=== PATIENT | female | born 1950 | race Hispanic/Latino ===

== ENCOUNTER 2017-06-03 12:24 | Inpatient (IN) | payer MEDICARE, OTHER ==
[2017-06-03] MEDS ORDERED: Ipratropium 0.02% Inhal Soln (0.5 mg/2.5 ml) UD IH STA (12:36)
[2017-06-03] MEDS ORDERED: Digoxin 500 mcg/2ml (0.5 mg/2ml) Inj IVP STA (13:05)
--- NOTE | 2017-06-03 13:15 | ED PDOC ---
Arrival/HPI - General Chief Complaint: Shortness Of Breath Time Seen by Provider: 06/03/17 12:26 Historian: Patient - History of Present Illness Narrative History of Present Illness (Text): 06/03/17 13:16 66 year old female, whose past medical history includes CHF on 40mg Lasix and A- fib, presents to the Emergency department complaining of worsening shortness of breath and dyspnea on exertion for past 10 days. Patient informs she has been non-compliant with her medications for past 1 month. Patient additionally informs having sinusitis with mild cough last week but currently denies any symptoms. Patient denies any fever, orthopnea, chest pain, palpitation, cough, nausea, vomiting, abdominal pain, diarrhea, dysuria or any other complaints. Time/Duration: > week Symptom Onset: Gradual Symptom Course: Worsening Activities at Onset: Light Context: Home Past Medical History - Provider Review Nursing Documentation Reviewed: Yes - Past History Past History: No Previous - Tetanus Immunization Tetanus Immunization: Unknown - Reproductive Menopause: Yes - Cardiac Hx Cardiac Disorders: Yes Hx Congestive Heart Failure: Yes - Pulmonary Hx Bronchitis: Yes - Musculoskeletal/Rheumatological Hx Falls: No - Psychiatric Hx Depression: Yes Hx Emotional Abuse: No Hx Physical Abuse: No Hx Substance Use: No - Past Surgical History Past Surgical History: No Previous - Suicidal Assessment Feels Threatened In Home Enviroment: No Family/Social History - Physician Review Nursing Documentation Reviewed: Yes Family/Social History: No Known Family HX Smoking Status: Former Smoker Hx Alcohol Use: Yes Frequency of alcohol use: Daily Hx Substance Use: No Hx Substance Use Treatment: No Allergies/Home Meds Allergies/Adverse Reactions: Allergies No Known Allergies Allergy (Verified 06/03/17 12:42) Home Medications: Home Meds Medication Instructions Recorded Confirmed Carvedilol [Coreg] 6.25 mg PO BID 06/03/17 06/03/17 Digoxin [Lanoxin] 250 mcg PO DAILY 06/03/17 06/03/17 Furosemide [Lasix] 40 mg PO DAILY 06/03/17 06/03/17 Ramipril [Altace] 2.5 mg PO DAILY 06/03/17 06/03/17 Spironolactone [Aldactone] 25 mg PO BID 06/03/17 06/03/17 Warfarin [Coumadin] 6 mg PO DAILY 06/03/17 06/03/17 Review of Systems - Physician Review All systems were reviewed & negative as marked: Yes - Review of Systems Constitutional: Normal. absent: Fevers Eyes: Normal ENT: Normal Respiratory: SOB. absent: Cough Cardiovascular: [place]. absent: Chest Pain, Palpitations, Orthopnea Gastrointestinal: Normal. absent: Abdominal Pain, Diarrhea, Nausea, Vomiting Genitourinary Female: Normal. absent: Dysuria Musculoskeletal: Normal Skin: Normal Neurological: Normal Endocrine: Normal Hemo/Lymphatic: Normal Psychiatric: Normal Physical Exam Vital Signs Reviewed: Yes Vital Signs Pulse Resp BP Pulse Ox 06/03/17 13:51 127/86 06/03/17 12:24 130 H 24 163/90 H 100 Temperature: Afebrile Blood Pressure: Hypertensive Pulse: Tachycardic Respiratory Rate: Normal Appearance: Positive for: Well-Appearing, Non-Toxic, Comfortable Pain Distress: None Mental Status: Positive for: Alert and Oriented X 3 - Systems Exam Head: Present: Atraumatic, Normocephalic Pupils: Present: PERRL Extroacular Muscles: Present: EOMI Conjunctiva: Present: Normal Mouth: Present: Moist Mucous Membranes Neck: Present: Normal Range of Motion Respiratory/Chest: Present: Good Air Exchange, Decreased Breath Sounds ( bibasilarly ). No: Respiratory Distress, Accessory Muscle Use Cardiovascular: Present: Murmurs (systolic ejection best heard at right upper sternal border ), Normal S1, S2, Tachycardic Abdomen: Present: Normal Bowel Sounds. No: Tenderness, Distention, Peritoneal Signs Back: Present: Normal Inspection Upper Extremity: Present: Normal Inspection. No: Cyanosis, Edema Lower Extremity: Present: Normal Inspection. No: Edema Neurological: Present: GCS=15, CN II-XII Intact, Speech Normal Skin: Present: Warm, Dry, Normal Color. No: Rashes Psychiatric: Present: Alert, Oriented x 3, Normal Insight, Normal Concentration Medical Decision Making ED Course and Treatment: 06/03/17 13:25 Impression: 66 year female presents to the Emergency department for shortness of breath s/p non-complaint with medications. Plan: -- VBG -- Labs -- Chest X-ray -- Atrovent -- Lanoxin -- Lasix -- Blood culture -- Urine culture -- Urinalysis -- Reassess and disposition Progress Notes: - Lab Interpretations Lab Results: 06/03/17 13:18 06/03/17 13:18 Lab Results 06/03/17 15:00: Urine Color Yellow, Urine Appearance Clear, Urine pH 6.0, Ur Specific [place] 1.010, Urine Protein Negative, Urine Glucose (UA) Negative, Urine Ketones Negative, Urine Blood Negative, Urine Nitrate Negative, Urine Bilirubin Negative, Urine Urobilinogen 0.2, Ur Leukocyte Esterase Negative 06/03/17 13:18: Sodium 126 L, Chloride 89 L, Potassium 4.4, Carbon Dioxide 24, Anion Gap 17, BUN 20, Creatinine 0.7, Est GFR ( Amer) > 60, Est GFR (Non- Af Amer) > 60, Random Glucose 168 H, Calcium 9.5, Total Bilirubin 1.0, AST 34, ALT 47, Alkaline Phosphatase 118, Lactate Dehydrogenase 737 H, Total Creatine Kinase 80, Troponin I 0.02, NT-Pro-B Natriuret Pep 4030 H, Total Protein 7.4, Albumin 4.0, Globulin 3.4, Albumin/Globulin Ratio 1.2 06/03/17 13:18: pO2 58 H, VBG pH 7.40, VBG pCO2 39.0 L, VBG HCO3 24.2, VBG Total CO2 25.4, VBG O2 Sat (Calc) 92.5 H, VBG Base Excess -0.5 L, VBG Potassium 4.4, Sodium 124.0 L, Chloride 90.0 L, Glucose 173 H, Lactate 2.2 H, FiO2 21.0, Venous Blood Potassium 4.4 06/03/17 13:18: PT 16.2 H, INR 1.41 H, APTT 26.6 06/03/17 13:18: WBC 12.4 H, RBC 4.29, Hgb 15.2, Hct 43.0, MCV 100.2, MCH 35.4 H , MCHC 35.3, RDW 13.0, Plt Count 339, MPV 10.7, Gran % 78.0 H, Lymph % (Auto) 13.3 L, [place] % (Auto) 8.4 H, Eos % (Auto) 0.2 L, Baso % (Auto) 0.1, Gran # 9.64 H, Lymph # 1.6, [place] # 1.0 H, Eos # 0.0, Baso # 0.01 - RAD Interpretation Radiology Orders: 06/03/17 12:36 CHEST PORTABLE [RAD] Stat - Medication Orders Current Medication Orders: Discontinued Medications Digoxin (Lanoxin) 0.25 mg IVP STAT STA Stop: 06/03/17 13:06 Last Admin: 06/03/17 13:51 Dose: 0.25 mg MAR Apical Pulse Rate Document 06/03/17 13:51 RG (Rec: 06/03/17 13:51 [email or web address]) Apical Pulse Rate Apical Pulse Rate (60-90 beats/min) 130 IVP Administration Document 06/03/17 13:51 RG (Rec: 06/03/17 13:51 [email or web address]) Charges for Administration # of IVP Administrations 1 Furosemide (Lasix) 40 mg IVP STAT STA Stop: 06/03/17 13:06 Last Admin: 06/03/17 13:51 Dose: 40 mg MAR Blood Pressure Document 06/03/17 13:51 RG (Rec: 06/03/17 13:52 [email or web address]) Blood Pressure Blood Pressure (100/60-150/90 mm Hg) 127/86 IVP Administration Document 06/03/17 13:51 RG (Rec: 06/03/17 13:52 [email or web address]) Charges for Administration # of IVP Administrations 1 Ipratropium [place] (Atrovent) 0.5 mg IH STAT STA Stop: 06/03/17 12:37 Last Admin: 06/03/17 13:29 Dose: 0.5 mg - Scribe Statement The provider has reviewed the documentation as recorded by the Jessa Vitale. All medical record entries made by the Jessa were at my direction and personally dictated by me. I have reviewed the chart and agree that the record accurately reflects my personal performance of the history, physical exam, medical decision making, and the department course for this patient. I have also personally directed, reviewed, and agree with the discharge instructions and disposition. Disposition/Present on Arrival - Present on Arrival Any Indicators Present on Arrival: No History of DVT/PE: No History of Uncontrolled Diabetes: No Urinary Catheter: No History of Decub. Ulcer: No History Surgical Site Infection Following: None - Disposition Have Diagnosis and Disposition been Completed?: Yes Diagnosis: Acute exacerbation of CHF (congestive heart failure) Disposition: HOSPITALIZED Disposition Time: 15:29 Patient Plan: Admission, Telemetry Condition: GUARDED Discharge Instructions (ExitCare): Heart Failure (ED) Forms: [employer] (Hungarian)
[2017-06-03 13:33] LABS: BASO # 0.01 K/mm3 (0.0-2.0); BASO % 0.1 % (0.0-3.0); EOS % 0.2 % (1.5-5.0); GRAN # 9.64 (1.4-6.5); HEMOGLOBIN 15.2 g/dL (12.0-16.0); LYMPH # 1.6 (1.2-3.4); LYMPH % 13.3 % (22.0-35.0); MEAN CELL VOLUME 100.2 fl (80.0-105.0); MEAN CORPUSCULAR HEMOGLOBIN 35.4 pg (25.0-35.0); MEAN CORPUSCULAR HGB CONC 35.3 g/dl (31.0-37.0); MEAN PLATELET VOLUME 10.7 fl (7.0-11.0); MONO % 8.4 % (1.0-6.0); RBC 4.29 10^6/uL (3.5-6.1); WHITE BLOOD COUNT 12.4 10^3/ul (4.5-11.0)
[2017-06-03 13:37] LABS: VENOUS BLOOD GAS BASE EXCESS -0.5 mmol/L (0.0-2.0); VENOUS BLOOD GAS PO2 58 mm/Hg (30-55)
[2017-06-03 13:51] LABS: INR 1.41 (0.93-1.08); PARTIAL THROMBOPLASTIN TIME 26.6 Seconds (25.1-36.5); PROTHROMBIN TIME 16.2 SECONDS (9.4-12.5)
[2017-06-03 13:54] LABS: B-TYPE NATRIURETIC PEPTIDE 4030 pg/mL (0-450); TROPONIN I 0.02 ng/mL
[2017-06-03 14:21] LABS: ALB/GLOB RATIO 1.2 (1.1-1.8); ALT/SGPT 47 U/L (7-56); AST/SGOT 34 U/L (14-36); BLOOD UREA NITROGEN 20 mg/dL (7-21); CALCIUM 9.5 mg/dL (8.4-10.5); GFR AFRICAN-AMERICAN > 60; GFR NON-AFRICAN AMERICAN > 60
--- NOTE | 2017-06-03 14:54 | RAD ---
HISTORY: sob COMPARISON: No prior. FINDINGS: LUNGS: No active pulmonary disease. PLEURA: No significant pleural effusion identified, no pneumothorax apparent. CARDIOVASCULAR: Cardiomegaly. OSSEOUS STRUCTURES: No significant abnormalities. VISUALIZED UPPER ABDOMEN: Normal. OTHER FINDINGS: None. IMPRESSION: No active disease.
[2017-06-03 15:16] LABS: URINE APPEARANCE CLEAR (CLEAR); URINE BILIRUBIN NEGATIVE (NEGATIVE); URINE BLOOD NEGATIVE (NEGATIVE); URINE COLOR YELLOW (YELLOW); URINE GLUCOSE (UA) NEGATIVE (NEGATIVE); URINE LEUKOCYTE ESTERASE NEGATIVE Leu/uL (NEGATIVE); URINE NITRATE NEGATIVE (NEGATIVE); URINE PROTEIN NEGATIVE mg/dL (<30 mg/dL); URINE UROBILINOGEN 0.2 E.U./dL (<1 E.U./dL)
[2017-06-03 18:39] LABS: VENOUS BLOOD GAS PO2 31 mm/Hg (30-55); VENOUS BLOOD PH 7.37 (7.32-7.43)
[2017-06-03 19:07] VITALS: BMI 29.1
[2017-06-04 06:26] LABS: VENOUS BLOOD GAS BASE EXCESS 9.7 mmol/L (0.0-2.0); VENOUS BLOOD GAS PO2 102 mm/Hg (30-55); VENOUS BLOOD PH 7.38 (7.32-7.43)
[2017-06-04 06:55] LABS: TROPONIN I 0.04 ng/mL
[2017-06-04 07:38] LABS: BLOOD UREA NITROGEN 19 mg/dL (7-21); GFR AFRICAN-AMERICAN > 60; GFR NON-AFRICAN AMERICAN > 60; MAGNESIUM 1.6 mg/dL (1.7-2.2)
--- NOTE | 2017-06-04 09:10 | CARD ---
APPROVED REPORT EKG Measurement Heart [id number] <Conclusion> Atrial fibrillation with rapid ventricular response with premature ventricular or aberrantly conducted complexes Low voltage QRS Possible Anterolateral infarct, age undetermined Abnormal ECG
[2017-06-04] MEDS ORDERED: Potassium Chloride 20 mEq ER Tab PO ONE (09:37)
[2017-06-04] MEDS: Potassium Chloride 20 mEq ER Tab PO SCH ×2 (10:51→18:17)
[2017-06-04] MEDS: Enoxaparin 80 mg Syringe SC SCH ×2 (10:55→21:31)
[2017-06-04] MEDS: Magnesium Oxide 400 mg Tab UD PO SCH ×4 (10:55→18:18)
[2017-06-04] MEDS: Digoxin 250 mcg (0.25 mg) Tab PO SCH (14:25)
--- NOTE | 2017-06-04 18:28 | CON ---
DATE: 06/04/2017 INDICATION: Shortness of breath, dyspnea on exertion, medical noncompliance. HISTORY OF PRESENT ILLNESS: This is a 66-year-old woman admitted with shortness of breath, worsening over a week or so. She has been noncompliant with medications for about a month and noncompliant with medical followup. She has known atrial fibrillation, known severe LV dysfunction based on an evaluation in 2012. She has been on Coumadin, but only followed up sporadically and more recently stopped taking all of her medication about one month ago. There is no chest pain, orthopnea, PND, syncope, presyncope, lightheadedness, dizziness, vertigo, palpitations, fever, chills, cough, sputum production, hemoptysis, abdominal pain, nausea, vomiting, diarrhea, constipation, or melena. Her past medical history is notable for an evaluation in 2012, which she presented with edema and shortness of breath, found to have congestive heart failure with severe LV dysfunction and LV ejection fraction about 15% on echocardiogram with mild aortic stenosis. She had atrial fibrillation at that time. She was noted to be a former smoker and a daily alcohol drinker. Subsequently, she is apparently doing well, but her follow up has been sporadic and she stopped taking her medications about a month ago. There is no history of diabetes, stroke, TIA, hyperlipidemia, or gout. MEDICATIONS: Medications at the time of admission, which were not taken for one month included Aldactone, Altace, Coreg, warfarin, digoxin, Lasix. ALLERGIES: THERE ARE NO MEDICATION ALLERGIES. SOCIAL HISTORY: She lives at home with her . She does not smoke at this time. She does drink alcohol frequently, almost daily. There is no history of drug use. FAMILY HISTORY: Not notable for early coronary artery disease. REVIEW OF SYSTEMS: Ten-point review of systems are otherwise unremarkable except as noted above. PHYSICAL EXAMINATION: GENERAL: She is a well developed woman, lying in bed, on telemetry, in no acute distress. She is in atrial fibrillation. VITAL SIGNS: Heart rate 74 to 130 beats per minute, afebrile; blood pressure 114/63; respirations 18 to 20; O2 saturations 97% to 100% on nasal cannula. HEENT: Reveals no neck vein distention, thyromegaly or carotid bruit. Mucous membranes are moist. Conjunctivae pink. NECK: Supple. LUNGS: Lung hopkins, few rhonchi scattered and a few rales at the bases. HEART: Examination of the heart revealed an irregular rhythm. Normal first and second heart sounds. There is a systolic ejection murmur in the aortic space. PMI is displaced laterally. ABDOMEN: Soft. Bowel sounds present. No mass or organomegaly, tenderness, rebound, guarding, CVA tenderness. No palpable abdominal aortic aneurysm. EXTREMITIES: Reveals no cyanosis, clubbing, or edema. NEUROLOGIC: Awake, alert and oriented. SKIN: Warm and dry. No rash or cellulitis. PSYCHIATRIC: Normal as to mood and affect. LABORATORY AND IMAGING: EKG demonstrates atrial fibrillation, low voltage, poor R wave progression, nonspecific ST wave changes. No acute changes or significant change from a prior EKG. Chest x-ray shows no active disease. There is cardiomegaly. White count 12,400, hemoglobin and hematocrit normal, platelet count normal. PT 16.2, INR 1.41, PTT 26.6. Blood gases are noted. Electrolytes noted. Sodium 136; potassium 3.1; chloride 91; carbon dioxide 34; BUN 19; creatinine 0.7; blood sugar 168, repeat 108; magnesium 1.6. LFTs unremarkable except LDH is elevated. CK 80, troponin 0.02 and 0.04. BNP 4030. TSH is 1. Urinalysis is unremarkable. ASSESSMENT: Nat Meeks is a 66-year-old woman with known cardiomyopathy, possibly on basis of daily alcohol use, atrial fibrillation, medical noncompliance, who is admitted with shortness of breath, atrial fibrillation. Her symptoms have improved with IV Lasix and she is resting comfortably in bed this morning on the telemetry unit. At this time I agree with current plans. We will replace potassium and magnesium. I will give her Lovenox while we decide whether or not she is an appropriate candidate for a fpc anticoagulation given her medical noncompliance. I will review old records. I will ascertain whether or not she ever had the cardiac catheterization that was recommended in 2013. In the meantime, we will continue spironolactone, ramipril, Coreg, digoxin, and IV Lasix. We will monitor I's and O's. Check stool for occult blood. I will get an echocardiogram. I will discuss her case with Dr. Paredes and with Dr. Melendez. I will follow along. I will make additional recommendations based on the clinical course. She is again advised to stop drinking alcohol. If she is to continue anticoagulation, she will need regular medical followup. Praveen Hendrickson MD MTDCristin
[2017-06-04 22:04] LABS: OSMOLALITY,URINE 463 mosm/kg (300-1000)
[2017-06-05 07:46] LABS: BLOOD UREA NITROGEN 19 mg/dL (7-21); CALCIUM 8.8 mg/dL (8.4-10.5); GFR AFRICAN-AMERICAN > 60; GFR NON-AFRICAN AMERICAN > 60; MAGNESIUM 1.8 mg/dL (1.7-2.2)
--- NOTE | 2017-06-05 09:09 | CP.PCM.PN ---
Subjective - Date & Time of Evaluation Date of Evaluation: 06/05/17 Time of Evaluation: 07:00 - Subjective Subjective: Stable on 2R. No CP or SOB. V/S noted. 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 PE: Lungs: rhonchi Cor.: irreg., S1S2, sys. murmur Abd.: soft Ext.: no edema Neuro.: alert I/O 500/1350 recorded Labs noted: K+= 3.9, Mg.++= 1.8 BC x2 NG at 24 hrs. Echo done: will review. Objective - Vital Signs/Intake and Output Vital Signs (last 24 hours): Temp Pulse Resp BP Pulse Ox 97.3 F L 84 18 113/82 98 06/05/17 00:01 06/05/17 06:00 06/05/17 06:00 06/05/17 06:00 06/05/17 06:00 Intake and Output: 06/05/17 06/05/17 06:59 18:59 Intake Total 500 Output Total 1350 Balance -850 - Medications Medications: Current Medications Carvedilol (Coreg) 6.25 mg PO BID [facility] Last Admin: 06/04/17 18:18 Dose: 6.25 mg Digoxin (Lanoxin) 0.25 mg PO 1400 [facility] Last Admin: 06/04/17 14:25 Dose: 0.25 mg Enoxaparin Sodium (Lovenox) 80 mg SC Q12H [facility] PRN Reason: Protocol Last Admin: 06/04/17 21:31 Dose: 80 mg Furosemide (Lasix) 40 mg IVP Q12 [facility] Last Admin: 06/04/17 21:28 Dose: 40 mg Magnesium Oxide (Mag-Ox) 400 mg PO BID [facility] Last Admin: 06/04/17 18:18 Dose: 400 mg Potassium Chloride (K-Dur 20 Meq Er Tab) 30 meq PO BID [facility] Last Admin: 06/04/17 18:17 Dose: 30 meq Ramipril (Altace) 2.5 mg PO DAILY [facility] Last Admin: 06/04/17 10:51 Dose: 2.5 mg Spironolactone (Aldactone) 25 mg PO BID [facility] Last Admin: 06/04/17 18:22 Dose: 25 mg - Labs Labs: 06/05/17 06:30 PT 16.2 SECONDS (9.4-12.5) H 01/07/18 13:18 INR 1.41 (0.93-1.08) H 06/03/17 13:18 APTT 26.6 Seconds (25.1-36.5) 06/03/17 13:18 Assessment and Plan - Assessment and Plan (Free Text) Assessment: Dyspnea CHF CCM, possibly ETOH related AF Former Smoker Medical Non-Compliance Plan: Continue IV Lasix today > PO tomorrow OOB Will check echo D/W pt A/C issues to determine if she will follow up regularly. CHADs score=3 Once CHF controlled, consider cardiac cath ( as recommended in 2013).
[2017-06-05] MEDS: Potassium Chloride 20 mEq ER Tab PO SCH ×2 (09:30→18:03)
[2017-06-05] MEDS: Enoxaparin 80 mg Syringe SC SCH ×2 (09:31→21:56)
[2017-06-05] MEDS: Magnesium Oxide 400 mg Tab UD PO SCH ×2 (09:31→18:00)
--- NOTE | 2017-06-05 10:54 | CARD ---
APPROVED REPORT EXAM: Two-dimensional and M-mode echocardiogram with Doppler and color Doppler. Other Information Quality : AverageRhythm : INDICATION SOB/AF/CHF/CCM 2D DIMENSIONS RVDd3.1 (2.9-3.5cm)Left Atrium (2D)4.9 (1.6-4.0cm) IVSd1.0 (0.7-1.1cm)LVDd5.1 (3.9-5.9cm) LVOT Diameter1.7 (1.8-2.4cm)PWd1.1 (0.7-1.1cm) LVDs4.4 (2.5-4.0cm)FS (%) 14.0 % LVEF (%)30.0 (>50%) M-Mode DIMENSIONS Aortic Root2.70 (2.2-3.7cm)Aortic Cusp Exc.0.60 (1.5-2.0cm) Aortic Valve AoV Peak Qppxhhyz370.0cm/sAoV VTI58.7cmAO Peak GR.40mmHg LVOT Peak Fjgoqgcn82.7cm/sLVOT VTI13.00cmAO Mean GR.20mmHg LILLY (VMAX)0.58qi8MQW (VTI)0.50cm2 Mitral Valve E/A ratio0.0 TDI E/Lateral E'0.0E/Medial E'0.0 Pulmonary Valve PV Peak Gscpjrqy58.5cm/sPV Peak Grad.2mmHg Tricuspid Valve TR Peak Pplfbhsr476uk/sRAP DRAIOINC17jhGiJT Peak Gr.44mmHg OCLH76etIc LEFT VENTRICLE The left ventricle is normal size. There is normal left ventricular wall thickness. Left ventricle systolic function is moderately to severely impaired. The Ejection Fraction is 25-30%. There is moderate to severe global hypokinesis. RIGHT VENTRICLE The right ventricle is moderately dilated. ATRIA The left atrium is moderately dilated. The right atrium is moderately dilated. The interatrial septum is intact with no evidence for an atrial septal defect. AORTIC VALVE The aortic valve is moderately calcified. There is mild aortic regurgitation. There is mild to moderate valvular aortic stenosis. MITRAL VALVE The mitral valve is normal in structure. Mitral regurgitation is moderate to severe. TRICUSPID VALVE The tricuspid valve is normal in structure. There is moderate to severe tricuspid regurgitation. There is moderate-severe pulmonary hypertension. GREAT VESSELS The aortic root is normal in size. PERICARDIAL EFFUSION There is no pericardial effusion. <Conclusion> The left ventricle is normal size. There is normal left ventricular wall thickness. Left ventricle systolic function is moderately to severely impaired. The Ejection Fraction is 25-30%. There is moderate to severe global hypokinesis. The aortic valve is moderately calcified. There is mild to moderate valvular aortic stenosis. There is mild aortic regurgitation. Mitral regurgitation is moderate to severe. There is moderate to severe tricuspid regurgitation. There is moderate-severe pulmonary hypertension.
[2017-06-05 12:57] VITALS: RESP 20
[2017-06-05] MEDS: Digoxin 250 mcg (0.25 mg) Tab PO SCH (14:20)
[2017-06-05 14:22] VITALS: PULSE 92
--- NOTE | 2017-06-05 23:15 | PN ---
DATE: 06/05/2017 SUBJECTIVE: Patient has no complaints of any chest pain or shortness of breath. She states her breathing is better compared to yesterday. PHYSICAL EXAMINATION: VITAL SIGNS: Temperature is 97.4, pulse of 86, blood pressure is 100/59, respirations 20. GENERAL: The patient is lying in bed, flat, comfortable. HEENT: No oral lesion. Anicteric sclerae. Moist mucosa. NECK: No JVD, adenopathy, or thyromegaly. CARDIOVASCULAR: S1 and S2, regular. No murmurs, rubs, or gallops. LUNGS: Clear to auscultation bilaterally. No wheeze, rales, or rhonchi. ABDOMEN: Bowel sounds are positive, soft, nontender and nondistended. EXTREMITIES: No cyanosis, clubbing or edema. LABORATORY DATA: White count of 12.4, hemoglobin is 15.2, creatinine is 0.8. ASSESSMENT: 1. Acute congestive heart failure exacerbation secondary to systolic dysfunction with an ejection fraction of 25% to 30%. 2. Moderate aortic stenosis. 3. Atrial fibrillation. 4. Nonadherence/noncompliance. PLAN: Patient is on IV Lasix. She is diuresing well. She is being followed by Dr. Hendrickson. I did speak to him. Patient's YOHANA score is 3. She should take anticoagulation but she does have history of noncompliance. She stopped taking medications and did not renew her medications. She has not followed up with Dr. Hendrickson, from Cardiology or her primary care doctor regularly. Patient is on carvedilol. She is on Altace. She is to continue Aldactone. She is on Lovenox, anticoagulation. I will leave the anticoagulation discussion to Dr. Hendrickson. Repeat her blood work tomorrow. Rudy Melendez MD
[2017-06-06 07:47] LABS: BLOOD UREA NITROGEN 16 mg/dL (7-21); CALCIUM 9.1 mg/dL (8.4-10.5); GFR AFRICAN-AMERICAN > 60; GFR NON-AFRICAN AMERICAN > 60
[2017-06-06 09:10] VITALS: O2SAT 94
[2017-06-06] MEDS: Magnesium Oxide 400 mg Tab UD PO SCH (09:14)
[2017-06-06] MEDS: Potassium Chloride 20 mEq ER Tab PO SCH (09:14)
[2017-06-06] MEDS: Enoxaparin 80 mg Syringe SC SCH (10:45)
[2017-06-06 12:02] VITALS: BP 122/55; PULSE 98; TEMP 91.7
--- NOTE | 2017-06-06 18:21 | PN ---
DATE: 06/06/2017 SUBJECTIVE: The patient is seen sitting in bed, on telemetry. She is currently comfortable. She denies any chest pain or dyspnea with exertion. Overall, she feels better. CURRENT MEDICATIONS: Include Aldactone 25 mg daily, Altace 2.5 mg daily, carvedilol 6.25 mg b.i.d., potassium supplement 30 mEq b.i.d., digoxin 0.25 mg daily, Lasix 40 mg IV twice daily, Lovenox, and magnesium supplement. OBJECTIVE: GENERAL: She is a middle-aged woman, who appears comfortable at rest. VITAL SIGNS: Her blood pressure 122/60 with a pulse of 98 in atrial fibrillation, respirations 14. She is afebrile. HEENT: No JVD. CHEST: Diminished breath sounds noted at the bases. HEART: PMI displaced laterally with a systolic murmur at the base as well as the lower left sternal border and also the apex. ABDOMEN: Soft, mildly obese, nontender with normoactive bowel sounds. EXTREMITIES: Trace ankle edema. DIAGNOSTIC DATA: Potassium 4.0, BUN and creatinine 16 and 0.7. Echocardiogram reveals evidence of moderately severe LV systolic dysfunction with mild to moderate aortic stenosis, mild aortic regurgitation, moderate to severe mitral and tricuspid regurgitation. IMPRESSION: 1. Decompensating congestive heart failure, acute on chronic, predominantly systolic, clinically improved. 2. Atrial fibrillation with variable compliance with anticoagulation use and followup. RECOMMENDATIONS: Resumption of Coumadin therapy would be appropriate. The importance of regular followup and monitoring of her INR was discussed with her. Salt and fluid restrictions were advised. Outpatient followup will be arranged as planned. RECOMMENDATIONS: At this time, she appears stable for discharge home. Juan Carlos Wiggins MD MTDD
--- NOTE | 2017-06-07 08:39 | DS ---
HISTORY OF PRESENT ILLNESS: This is a 66-year-old female who had come into the hospital because of shortness of breath. She has not been taking her medications. She has not been compliant with her followup with Dr. Hendrickson. She has EF of 25% to 30%. She was placed on IV diuretic therapy and had improvement of her symptoms. She states she is feeling better. She is able to ambulate. She had atrial fibrillation and she had also been on anticoagulation. She is wanting to follow up with Dr. Hendrickson. They have discussed this issue and I will leave it up to them. PHYSICAL EXAMINATION: VITAL SIGNS: Temperature is 97.6, pulse of 68, blood pressure is 116/69, respirations 20, O2 saturation is 97%. GENERAL: The patient lying in bed, uncomfortable, and in no acute distress. HEENT: Atraumatic and normocephalic. Anicteric sclerae. Moist mucosa. [place] conjunctivae. No oral lesions. NECK: No JVD, anterior and posterior adenopathy, thyromegaly, or bruits. CARDIOVASCULAR: S1 and S2 regular. No murmur, rubs, or gallop. LUNGS: Clear to auscultation bilaterally. No wheezes, rales, or rhonchi. ABDOMEN: Bowel sounds are positive. Soft, nontender and nondistended. No hepatosplenomegaly. No rebound and no guarding EXTREMITIES: No cyanosis, clubbing, or edema. NEUROLOGIC: No facial asymmetry. Tongue is midline. No uvula deviation. Power is 5/5 upper extremity and lower extremity. Sensation intact in upper extremity and lower extremity. PSYCHIATRIC: She is awake, alert and oriented x3. No anxiety or depression. She has normal affect. GENITOURINARY: No CVA tenderness. VASCULAR: 2+ pulses in the carotid pulses and pedal pulses. SKIN: No erythema or nodules SPINE: Shows normal curvature. ASSESSMENT: 1. Acute congestive heart failure secondary to systolic dysfunction with an ejection fraction of 25% to 30%. 2. Moderate aortic stenosis. 3. Atrial fibrillation. 4. Noncompliance/nonadherence. PLAN: The patient is on IV diuretic therapy, we will place her. She needs to be continued at home. She is on carvedilol and Altace; this also will be continued. She was found to be on digoxin. The patient is on Lovenox for anticoagulation. She is on magnesium replacement. She will be discharged home today. CONDITION: Stable. ACTIVITIES: Increase as tolerated. Rudy Melendez MD
== END 2017-06-06 16:25 | disposition home or self-care (01) | DRG 292 ==
LOC: ED 12:24 → ERH 15:26 → 3RSO 20:51
PROVIDERS: ADMIT Internal Medicine Nephrology; ATTEND Internal Medicine Nephrology
DX: I50.23 Acute on chronic systolic (congestive) heart failure (principal); I42.9 Cardiomyopathy, unspecified; I48.91 Unspecified atrial fibrillation; I08.3 Combined rheumatic disorders of mitral, aortic and tricuspid valves; Z79.01 Long term (current) use of anticoagulants; Z91.14 Patient's other noncompliance with medication regimen; Z91.19 Patient's noncompliance with other medical treatment and regimen; Z87.891 Personal history of nicotine dependence